=== PATIENT | male | born 1990 | race African-American/Black ===

== ENCOUNTER 2022-08-11 10:23 | Emergency (ER) | payer BC, OTHER | END 2022-08-11 11:39 | disposition home or self-care (01) | LOC: NAV ERS 10:23 | DX: B34.9 Viral infection, unspecified (principal); Z20.822 Contact with and (suspected) exposure to COVID-19 | CPT/HCPCS: 71046; U0003; U0005 ==

== ENCOUNTER 2024-07-05 01:19 | Emergency (ER) | payer BC ==
[2024-07-05] MEDS ORDERED: Ketorolac Tromethamine 60 MG/2 ML VIAL ONE (01:39)
== END 2024-07-05 01:54 | disposition home or self-care (01) ==
LOC: NAV ERS 01:19
DX: S16.1XXA Strain of muscle, fascia and tendon at neck level, initial encounter (principal); R03.0 Elevated blood-pressure reading, without diagnosis of hypertension; X58.XXXA Exposure to other specified factors, initial encounter
CPT/HCPCS: 96372; 99283; J1885

== ENCOUNTER 2025-06-09 21:03 | Emergency (ER) | payer BC | END 2025-06-09 22:22 | disposition home or self-care (01) | LOC: NAV ERS 21:03 | DX: R05.9 Cough, unspecified (principal) | CPT/HCPCS: 71046 ==